=== PATIENT | female | born 1945 | race African-American/Black ===

== ENCOUNTER 2019-10-14 15:59 | Emergency (ER) | payer OTHER ==
[~2019-10-14] VITALS: Ht 160 cm; Wt 93.9 kg
[2019-10-14] MEDS ORDERED: SODIUM CHLORIDE 0.9% 500 ML IV ONE (16:32)
[2019-10-14 16:55] LABS: Basophils # (auto) 0.1 uL; Basophils % (auto) 0.9 % (0.0-2.0); Eosinophils # (auto) 0.1 uL; Eosinophils % (auto) 1.4 % (0.0-7.0); Hematocrit 45.5 % (36.0-46.0); Lymphocytes % (auto) 23.6 % (10.0-50.0); Mean Corpuscular Hemoglobin 27.3 pg (28.0-32.0); Mean Corpuscular Volume 82.7 fL (80.0-100.0); Monocytes # (auto) 0.6 uL; Monocytes % (auto) 6.5 % (0.0-12.0); Neutrophils # (auto) 5.8 uL; Neutrophils % (auto) 67.6 % (37.0-80.0); Platelet Count (auto) 355 10^3/uL (140-450); Red Cell Distribution Width 14.5 % (11.8-14.3); White Blood Cell 8.6 10^3/uL (4.4-10.8)
[2019-10-14 17:11] LABS: Albumin 3.6 g/dL (3.4-5.0); Anion Gap 7 (5-15); Blood Urea Nitrogen 25 mg/dL (7-18); Calcium 9.3 mg/dL (8.5-10.1); Carbon Dioxide 24 mmol/L (21-32); Chloride 109 mmol/L (98-107); Glucose 338 mg/dL (74-106); Magnesium 1.8 mg/dL (1.6-2.6); Potassium 4.1 mmol/L (3.5-5.1); Sodium 140 mmol/L (136-145)
[2019-10-14 17:15] LABS: Alanine Aminotransferase 19 U/L (13-56); Alkaline Phosphatase 148 U/L (45-117); Aspartate Aminotransferase 12 U/L (15-37); BUN/Creatinine Ratio 16.7; Bilirubin, Total 0.2 mg/dL (0.2-1.0); GFR African American 44 mL/min; GFR Non-African American 36 mL/min; Total Protein 8.3 g/dL (6.4-8.2)
[2019-10-14 23:57] VITALS: BP 152/84
== END 2019-10-15 01:17 | disposition short-term general hospital (02) ==
LOC: EDBD 15:59 → ER 15:59
DX: R55 Syncope and collapse (principal); R51 Headache; R42 Dizziness and giddiness; E11.65 Type 2 diabetes mellitus with hyperglycemia; J45.909 Unspecified asthma, uncomplicated; F17.210 Nicotine dependence, cigarettes, uncomplicated; E78.5 Hyperlipidemia, unspecified; I10 Essential (primary) hypertension; Z90.710 Acquired absence of both cervix and uterus; Z98.51 Tubal ligation status
CPT/HCPCS: 36415; 70450; 71045; 80053; 82962; 83735; 84484; 85025; 93005; 96360; 96361; 99285; J7040

== ENCOUNTER 2025-03-07 12:54 | Inpatient (IN) | payer OTHER ==
[~2025-03-07] VITALS: Ht 165.1 cm; Wt 81.8 kg
[2025-03-07] MEDS: SODIUM CHLORIDE 0.9% 1,000 ML IV ONE (13:00)
--- NOTE | 2025-03-07 13:03 | ED.PDOC ---
History of Present Illness HPI Comments 79-year-old female with PMHx HTN, DM brought in by EMS presents with a chief complaint of Generalized Weakness, HTN, and Diarrhea. Patient was at [facility] and was noted to have low blood pressure. Per EMS, patient is orthostatic positive. BP sitting down was 91/58 and upon standing was 69/43 and patient became lightheaded. Patient was initially A/Ox4 but EMS reports that patient seemed to have lost consciousness and is now A/Ox0, is slower to respond, and is pale and diaphoretic. 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: No Pertinent PINBALL MACHINE REPAIRER History Family History Family History: Family hx of Cancer Social History Smoker: Quit Less Than 1 Year, Cigarettes Alcohol: Denies ETOH Use Drugs: Denies Drug Use Lives In: Home Constitutional: reports: diaphoresis, weakness; denies: chills, fatigue, fever, malaise, sweats, others EENTM: denies: blurred vision, double vision, ear bleeding, ear discharge, ear drainage, ear pain, ear ringing, eye pain, eye redness, hearing loss, mouth pa in, mouth swelling, nasal discharge, nose bleeding, nose congestion, nose pain, photophobia, tearing, throat pain, throat swelling, voice changes, others Respiratory: denies: cough, hemoptysis, orthopnea, SOB at rest, shortness of breath, SOB with excertion, stridor, wheezing, others Cardiovascular: reports: others (HTN); denies: chest pain, dizzy spells, diaphoresis, Dyspnea on exertion, edema, irregular heart beat, left arm pain, lightheadedness, palpitations, PND, syncope Gastrointestinal: reports: diarrhea; denies: abdomen distended, abdominal pain, blood streaked bowels, constipated, dysphagia, difficulty swallowing, hematemesis, melena, nausea, poor appetite, poor fluid intake, rectal bleeding, rectal pain, vomiting, others Genitourinary: denies: abnormal vagina bleeding, burning, dyspareunia, dysuria, flank pain, frequency, hematuria, incontinence, pain, , vagina dis charge, urgency, others Neurological: denies: dizziness, fainting, headache, left sided numbness, left sided weakness, numbness, paresthesia, pre-existing deficit, right sided numbness, right sided weakness, seizure, speech problems, tingling, tremors, weakness, others Musculoskeletal: denies: back pain, gout, joint pain, joint swelling, muscle pain, muscle stiffness, neck pain, others Integumetry: denies: bruises, change in color, change in hair/nails, dryness, laceration, lesions, lumps, rash, wounds, others Allergic/Immunocompromised: denies: Difficulty Healing, Frequent Infections, Hives, Itching, others Hematologic/Lymphatic: denies: anemia, blood clots, easy bleeding, easy bruising, swollen glands, others Endocrine: denies: excessive hunger, excessive sweating, excessive thirst, excessive urination, flushing, intolerance to cold, intolerance to heat, unexplained weight gain, unexplained weight loss, others Psychiatric: denies: anxiety, bipolar disorder, depression, hopeless, panic disorder, schizophrenia, sleepless, suicidal, others All Other Systems: Reviewed and Negative Physical Exam General Appearance: Moderate Distress, Obese HEENT: Pale Conjuntivae (L), Pale Conjuntivae (R), Pharynx Normal, TMs Normal Neck: Full Range of Motion, Non-Tender, Normal, Normal Inspection Respiratory: Chest Non-Tender, Lungs Clear, No Accessory Muscle Use, No Respiratory Distress, Normal Breath Sounds Cardiovascular: No Edema, No JVD, No Murmur, No Gallop, Normal Peripheral Pulses, Regular Rate/Rhythm Breast Exam: Deferred Gastrointestinal: Diffuse, No Organomegaly, No Pulsatile Mass, Normal Bowel Sounds, Soft, Tenderness Genitalia: Deferred Pelvic: Deferred Rectal: Deferred Extremities: No calf tenderness, Normal capillary refill, No pedal edema Musculoskeletal : Apperance: Normal 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 Was a procedure done?: No EKG EKG : Pulse Rate (adult): 86 [place]: Normal Cardiac Rhythm: NSR Block: None ST: Nonsp Differential Dx Considerations may include: Generalized weakness, sepsis, dehydration, UTI, pneumonia X-Ray, Labs, Meds, VS Vital Signs Date Time Temp Pulse Resp B/P (MAP) Pulse Ox O2 Delivery O2 Flow Rate FiO2 03/07/25 15:36 106 03/07/25 13:35 83 03/07/25 13:15 97.8 81 21 92/66 (75) 99 97.8 03/07/25 13:15 Room Air* 0 21 03/07/25 13:00 97.7 83 18 105/55 (72) 99 97.7 Lab Test 03/07/25 14:34 03/07/25 13:33 03/07/25 13:26 Range/Units Troponin I High Sensitivity 4 4 </=34 ng/L Lactic Acid Level 3.7 *H 3.9 *H 0.4-2.0 mmol/L White Blood Count 7.2 4.4-10.8 10^3/uL Red Blood Count 5.00 4.0-5.20 10^6/uL Hemoglobin 13.5 12.2-16.2 g/dL Hematocrit 41.4 36.0-46.0 % Mean Corpuscular Volume 82.8 80.0-100.0 fL Mean Corpuscular Hemoglobin 26.9 L 28.0-32.0 pg Mean Corpuscular Hemoglobin Concent 32.5 32.0-36.0 g/dL Red Cell Distribution Width 15.9 H 11.8-14.3 % Platelet Count 255 140-450 10^3/uL Mean Platelet Volume 10.4 6.9-10.8 fL Neutrophils (%) (Auto) 57.7 37.0-80.0 % Lymphocytes (%) (Auto) 33.0 10.0-50.0 % Monocytes (%) (Auto) 6.5 0.0-12.0 % Eosinophils (%) (Auto) 2.0 0.0-7.0 % Basophils (%) (Auto) 0.8 0.0-2.0 % Neutrophils # (Auto) 4.2 1.6-8.6 10 ^3/uL Lymphocytes # (Auto) 2.4 0.4-5.4 10 ^3/uL Monocytes # (Auto) 0.5 0-1.3 10 ^3/uL Eosinophils # (Auto) 0.1 0-0.8 10 ^3/uL Basophils # (Auto) 0.1 0-0.2 10 ^3/uL Nucleated Red Blood Cells 0.1 % Sodium Level 144 136-145 mmol/L Potassium Level 3.8 3.5-5.1 mmol/L Chloride Level 111 H 98-107 mmol/L Carbon Dioxide Level 21 20-31 mmol/L Anion Gap 12 5-15 Blood Urea Nitrogen 21 9-23 mg/dL Creatinine 1.61 H 0.550-1.02 mg/dL Glomerular Filtration Rate Calc 33 >90 mL/min BUN/Creatinine Ratio 13.0 10.0-20.0 Serum Glucose 177 H 74-106 mg/dL Calcium Level 10.6 H 8.7-10.4 mg/dL Current Medications Medications (Trade) Dose Ordered Sig/Michelle Route Start Time Stop Time Status Last Admin Sodium Chloride 1,000 ml @ 150 mls/hr Q6H40M ONCE IV 03/07/25 13:00 03/07/25 19:39 03/07/25 13:00 Sodium Chloride 1,700 ml @ 1,700 mls/hr ONCE ONCE IV 03/07/25 15:00 03/07/25 15:59 DC 03/07/25 15:16 Ceftriaxone Sodium 50 ml @ 100 mls/hr ONCE ONCE IV 03/07/25 15:00 03/07/25 15:29 DC 03/07/25 15:49 IV Hep-Lock was established The patient was given normal saline per sepsis protocol. The patient is CBC is within normal limits through on the chemistry panel is within normal limits except for creatinine of 1.61 new line the glucose is 177. The patient's lactic acid levels 3.9 The repeat lactic acid level 3.7 The patient was given Rocephin 1 g IV piggyback The patient will be continually bolus of normal saline when the sepsis protocol his down the line blood cultures x2 his dime After the blood cultures, the patient was given vancomycin IV piggyback and Rocephin IV piggyback The patient is currently a [place] patient We will put a Razo catheter and we are currently waiting the urine test We did speak with [place] and they have given us authorization for admission The authorization [id number] Images Reviewed?: Images reviewed and evaluated by me Time of 1ST Reevaluation: 13:25 Reevaluation 1ST: Improved Patient Education/Counseling: Diagnosis, Treatment, Need For Follow Up Family Education/Counseling: No Family Present Sepsis Sepsis Reasesment Focused Exam Orders: Laboratory Tests 03/07/25 13:26: Lactic Acid Level 3.9 03/07/25 13:33: Lactic Acid Level 3.7 Departure 1 Departure Time of Disposition: 16:28 Impression: Primary Impression: Sepsis secondary to UTI Additional Impressions: Generalized weakness Elevated lactic acid level Disposition: ADMITTED INPATIENT Admit to: [facility] Condition: Fair Critical Care Note Critical Care Time?: Yes (45 min-critical care time only) Stability Stability form required: Yes Unstable for transfer: Telemetry monitoring (Telemetry monitoring required), Low BP (low high or fluctuating BP), ED Physician Assesment (Clinical assesment) Heart Score Heart Score: Heart Score Response (Comments) Value History N/A 0 EKG N/A 0 Age N/A 0 Risk Factors N/A 0 Troponin N/A 0 Total 0 I personally scribed for BRIGIDA MELARA MD ([email or web address]) on 03/07/25 at 13:03. Electronically submitted by Joe Coker ([email or web address]). BRIGIDA MELARA MD Mar 07, 2025 13:03
--- NOTE | 2025-03-07 13:41 | DVH ---
INDICATION: weakness TECHNIQUE: Frontal view of the chest. COMPARISON: None FINDINGS: . The heart and mediastinal contours are grossly unremarkable. There is no evidence of pleural disea se. The lungs are clear. The bony structures of the chest are intact without fracture. IMPRESSION: 1. No evidence of acute disease.
[2025-03-07 14:00] LABS: Basophils # (auto) 0.1 10 ^3/uL (0-0.2); Basophils % (auto) 0.8 % (0.0-2.0); Eosinophils # (auto) 0.1 10 ^3/uL (0-0.8); Hematocrit 41.4 % (36.0-46.0); Hemoglobin 13.5 g/dL (12.2-16.2); Lymphocytes # (auto) 2.4 10 ^3/uL (0.4-5.4); Mean Corpuscular Hemoglobin 26.9 pg (28.0-32.0); Mean Corpuscular Hgb Conc. 32.5 g/dL (32.0-36.0); Mean Corpuscular Volume 82.8 fL (80.0-100.0); Monocytes # (auto) 0.5 10 ^3/uL (0-1.3); Monocytes % (auto) 6.5 % (0.0-12.0); Neutrophils # (auto) 4.2 10 ^3/uL (1.6-8.6); Neutrophils % (auto) 57.7 % (37.0-80.0); Nucleated Red Blood Cells % 0.1 %; Platelet Count (auto) 255 10^3/uL (140-450); Red Cell Distribution Width 15.9 % (11.8-14.3); White Blood Cell 7.2 10^3/uL (4.4-10.8)
[2025-03-07 14:04] LABS: Potassium 3.8 mmol/L (3.5-5.1); Sodium 144 mmol/L (136-145)
[2025-03-07 14:05] LABS: Anion Gap 12 (5-15); Carbon Dioxide 21 mmol/L (20-31)
[2025-03-07 14:10] LABS: Blood Urea Nitrogen 21 mg/dL (9-23)
[2025-03-07 14:11] LABS: Chloride 111 mmol/L (98-107); Glucose 177 mg/dL (74-106)
[2025-03-07 14:12] LABS: Calcium 10.6 mg/dL (8.7-10.4)
[2025-03-07 14:14] LABS: Lactic Acid w/Reflex 3.9 mmol/L (0.4-2.0)
[2025-03-07] MEDS: SODIUM CHLORIDE 0.9% 1,700 ML IV ONE (15:16)
--- NOTE | 2025-03-07 15:43 | ECG ---
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
[2025-03-07] MEDS: cefTRIAXone 1GM/50ML D5W 50 ML IV ONE (15:49)
[2025-03-07] MEDS: VANCOMYCIN 1GM/200ML PM 200 ML IV ONE (16:27)
[2025-03-07 16:28] LABS: Urine Bacteria None Seen /hpf (None Seen)
[2025-03-07 16:56] LABS: Urine Blood 2+ /uL (Negative); Urine Budding Yeast MANY /hpf (None Seen); Urine Clarity Turbid (Clear); Urine Color Yellow (Yellow); Urine Hyaline Cast MOD /lpf (0 - 2); Urine Protein, UAD 1+ (Negative); Urine Specific Gravity 1.021 (1.001-1.035); Urine Squamous Epithelial Cell None Seen /hpf (<5); Urine Urobilinogen Normal (Negative); Urine WBC 491 /HPF (0-5); Urine WBC Clumps PRESENT /hpf (None Seen); Urine pH 5.5 (5.0-9.0)
[2025-03-07] MEDS ORDERED: DEXTROSE (50%) 50ML SYRG IV PRN (18:30)
[2025-03-07] MEDS ORDERED: ACETAMINOPHEN 325 MG TAB PO PRN (18:30)
[2025-03-07] MEDS: LACTATED RINGER'S 500 ML IV ONE (18:30)
[2025-03-07] MEDS ORDERED: ONDANSETRON HCL 4 MG/2 ML VIAL IV PRN (18:30)
[2025-03-07] MEDS ORDERED: DOCUSATE SOD 100 MG CAP PO PRN (18:30)
[2025-03-07] MEDS ORDERED: VANCOMYCIN PER PHARMACY 0 MG IV SCH (18:30)
[2025-03-07 19:30] VITALS: PULSE 79; RESP 12; O2SAT 98
[2025-03-07] MEDS ORDERED: MORPHINE SULFATE INJ 2 MG/ml SYRG IV PRN (19:30)
[2025-03-07] MEDS ORDERED: NITROGLYCERIN 0.4 MG SL TAB SL PRN (19:30)
--- NOTE | 2025-03-07 19:30 | DVHHP2 ---
History of Present Illness Reason for Visit: Sepsis secondary to UTI History of Present Illness The patient is a 79 years old female with past medical history of DM, GERD, hyperlipidemia, asthma, arthritis, and hypertension who presented to [facility] ED with complaint of generalized weakness associated with diarr hea and hypertension. As reported by EMS, patient was orthostatic positive. BP sitting down was 91/58, upon standing was 69/43, and patient became lightheaded. Patient was seen and evaluated in the ED, laboratory data shows WBC 7.2, platelets 255, sodium 144, potassium 3.8, BUN 21, creatinine 1.61, glucose 177, calcium 10.6, troponin four, lactic acid 3.7 trending down to 2.9, blood pressure 44/81, heart rate 86, temperature 97.8 F, O2 saturation 99% on room air. Urinalysis positive for urinary tract infection. Patient was started on IV antibiotic regimen Rocephin, please see medication orders section in the computer. On my assessment, patient denied chest pain, no headache, no dizziness, no shortness of breath, no nausea, no vomiting, no fever, no chills. Patient was admitted for further evaluation and medical management. Past Medical History Arthritis, Asthma, DM, Gout, High Lipids, HTN Past Surgical History Appendectomy, Hysterectomy, Tubal Ligation Family History Reviewed, noncontributory to the management of this case. Past Social History The patient lives at home, quit smoking cigarettes less than 1 pack per day, denies alcohol or illicit drugs abuse. Review of Systems Constitutional: Yes: Weakness, Other (Diaphoresis); No: Fever, Chills, Sweats, Malaise Eyes: No: Pain, Vision change, Conjunctivae inflammation, Eyelid inflammation, Other, Redness ENT: No: Ear pain, Ear discharge, Nose pain, Nose discharge, Nose congestion, Mouth pain, Mouth swelling, Throat pain, Throat swelling, Other Respiratory: No: Cough, Dry, Shortness of breath, SOB with excertion, Wheezing, Hemoptysis, Pleuritic Pain, Sputum, Wheezing, Other Cardiovascular: No: Chest Pain, Palpitations, Orthopnea, Paroxysmal Noc. Dyspnea, Edema, Lt Headedness, Other Gastrointestinal: Diarrhea; No: Nausea, Vomiting, Abdominal Pain, Constipation, Melena, Hematochezia, Other Genitourinary: No Dysuria, No Frequency, No Incontinence, No Hematuria, No Retention, No Other Musculoskeletal: No: other, neck pain, shoulder pain, arm pain, back pain, hand pain, leg pain, foot pain Skin: No: Rash, Lesions, Jaundice, Bruising, Other Neurological: No: Weakness, Numbness, Incoordination, Change in speech, Confusion, Seizures, Other Allergies: Coded Allergies: NO KNOWN ALLERGIES (Unverified , 07/23/11) Medications Current Medications Medications Dose Ordered Sig/Michelle Route Start Time Stop Time Status Last Admin Dose Admin Ceftriaxone Sodium 50 ml @ 100 mls/hr DAILY@09 IV 03/08/25 09:00 Vancomycin HCl 0 ml @ 0 mls/hr UD IV 03/07/25 18:30 Aspirin 81 mg DAILY PO 03/08/25 10:00 Diagnostic Test (Pha) 1 strip ACHS 03/07/25 22:00 Insulin Human Regular HS SC 03/07/25 22:00 Insulin Human Regular AC SC 03/08/25 07:00 Dextrose 50 ml UD PRN IV 03/07/25 18:30 Sodium Chloride 10 ml Q8HR IV 03/07/25 22:00 Acetaminophen/ Hydrocodone Bitart 1 tab Q4HP PRN PO 03/07/25 18:30 Ondansetron HCl 4 mg Q4HP PRN IV 03/07/25 18:30 Docusate Sodium 100 mg BIDPRN PRN PO 03/07/25 18:30 Acetaminophen 650 mg Q6HP PRN PO 03/07/25 18:30 Exam Vital Signs Vital Signs Date Time Temp Pulse Resp B/P (MAP) Pulse Ox O2 Delivery O2 Flow Rate FiO2 03/07/25 18:00 80 19 159/85 (109) 96 03/07/25 13:15 97.8 97.8 03/07/25 13:15 Room Air* 0 21 General Appearance: Alert, Oriented X3, Cooperative, No acute distress HEENT: Atraumatic, PERRLA, EOMI, Mucous membr. moist/pink Respiratory: Normal air movement Cardiovascular: Regular rate, Normal S1, Normal S2, No murmurs, Gallops Abdominal: Normal bowel sounds, Soft, No tenderness, No hepatospenomegaly, No masses Extremities: No clubbing, No cyanosis, No edema, Normal pulses, No tenderness/swelling Skin: No rashes, No breakdown, No significant lesion Neuro: Normal speech, Normal tone, Sensation intact, Cranial nerves 3-12 NL, Reflexes 2+, Other (Generalized weakness) Psych/Mental Status: Mental status NL, Mood NL Labs/Xrays Labs Test 03/07/25 16:15 03/07/25 14:34 03/07/25 13:33 03/07/25 13:26 Range/Units Urine Color Yellow Yellow Urine Clarity Turbid H Clear Urine pH 5.5 5.0-9.0 Urine Specific [place] 1.021 1.001-1.035 Urine Protein 1+ H Negative Urine Ketones Negative Negative Urine Blood 2+ H Negative /uL Urine Nitrite Negative Negative Urine Bilirubin Negative Negative Urine Urobilinogen Normal Negative mg/dL Urine Leukocyte Esterase 3+ Negative /uL Urine RBC 44 0 - 4 /hpf Urine WBC Clumps Present None Seen /hpf Urine Microscopic WBC 491 H 0-5 /HPF Urine Squamous Epithelial Cells None seen <5 /hpf Urine Bacteria None seen None Seen /hpf Urine Hyaline Casts Mod 0 - 2 /lpf Urine Yeast (Budding) Many None Seen /hpf Urine Glucose 4+ H Normal mg/dL Troponin I High Sensitivity 4 </=34 ng/L Lactic Acid Level 3.7 *H 0.4-2.0 mmol/L White Blood Count 7.2 4.4-10.8 10^3/uL Red Blood Count 5.00 4.0-5.20 10^6/uL Hemoglobin 13.5 12.2-16.2 g/dL Hematocrit 41.4 36.0-46.0 % Mean Corpuscular Volume 82.8 80.0-100.0 fL Mean Corpuscular Hemoglobin 26.9 L 28.0-32.0 pg Mean Corpuscular Hemoglobin Concent 32.5 32.0-36.0 g/dL Red Cell Distribution Width 15.9 H 11.8-14.3 % Platelet Count 255 140-450 10^3/uL Mean Platelet Volume 10.4 6.9-10.8 fL Neutrophils (%) (Auto) 57.7 37.0-80.0 % Lymphocytes (%) (Auto) 33.0 10.0-50.0 % Monocytes (%) (Auto) 6.5 0.0-12.0 % Eosinophils (%) (Auto) 2.0 0.0-7.0 % Basophils (%) (Auto) 0.8 0.0-2.0 % Neutrophils # (Auto) 4.2 1.6-8.6 10 ^3/uL Lymphocytes # (Auto) 2.4 0.4-5.4 10 ^3/uL Monocytes # (Auto) 0.5 0-1.3 10 ^3/uL Eosinophils # (Auto) 0.1 0-0.8 10 ^3/uL Basophils # (Auto) 0.1 0-0.2 10 ^3/uL Nucleated Red Blood Cells 0.1 % Sodium Level 144 136-145 mmol/L Potassium Level 3.8 3.5-5.1 mmol/L Chloride Level 111 H 98-107 mmol/L Carbon Dioxide Level 21 20-31 mmol/L Anion Gap 12 5-15 Blood Urea Nitrogen 21 9-23 mg/dL Creatinine 1.61 H 0.550-1.02 mg/dL Glomerular Filtration Rate Calc 33 >90 mL/min BUN/Creatinine Ratio 13.0 10.0-20.0 Serum Glucose 177 H 74-106 mg/dL Calcium Level 10.6 H 8.7-10.4 mg/dL PATIENT: ARABELLA DIAZ ACCT: [id number] UNIT: [id number] : 1945 LOC: ER ROOM / BED: / AGE / SEX: 79 / F ADM STATUS: REG ER SERVICE 1259 ORDERING PHYSICIAN: BRIGIDA MELARA MD PROCEDURE(s): CXRP - CHEST PORTABLE REASON: weakness ORDER NUMBER(s): [id number], ACCESSION NUMBER(s): [id number] INDICATION: weakness TECHNIQUE: Frontal view of the chest. COMPARISON: None FINDINGS: The heart and mediastinal contours are grossly unremarkable. There is no e vidence of pleural disease. The lungs are clear. The bony structures of the chest are intact without fracture. IMPRESSION: 1. No evidence of acute disease. Assessment/Plan Assessment/Plan Sepsis secondary to UTI Acute renal injury Diabetes mellitus with hyperglycemia Elevated lactic acid level Generalized weakness Plan 1. Admit to telemetry unit 2. Breathing treatment 3. Pain control management 4. IV antibiotic management 5. Management of fluids and electrolytes 6. Consultation for hospitalist 7. Diagnostic test chest x-ray 8. DVT prophylaxis on SCDs 9. Repeat labs CBC, CMP in a.m. 10. Home medication reviewed and reconciled 11. Continue with current medical management 12. Treatment plan discussed with patient and RN. Patient verbalized understanding. Plan discussed with: Patient, Other (RN) My Orders Orders - BRENNEN MAHAJAN DNP Procedure Category Date Status Time Urine Bacterial KURT 03/07/25 In Process Culture 18:18 Consistent DIET 03/07/25 Transmitted Carb(Ccho)Diabetes Dinner Ceftriaxone 1gm/50ml PHA 03/08/25 In Process D5w (Rocephin) 09:00 Vancomycin Per PHA 03/07/25 In Process Pharmacy 18:30 Aspirin Tablet PHA 03/08/25 In Process 10:00 Glucose Blood PHA 03/07/25 In Process (Accu-Chek Comfort 22:00 Insulin R (Human) PHA 03/07/25 In Process (Insulin R) 22:00 Insulin R (Human) PHA 03/08/25 In Process (Insulin R) 07:00 Dextrose 50% Syringe PHA 03/07/25 In Process 18:30 Allergies PARVIZ 03/07/25 In Process 18:18 Code Status CODE 03/07/25 Transmitted 18:18 Sodium Chloride Lock PHA 03/07/25 In Process (Saline Lock Ns) 22:00 Oxygen Per Hour RT 03/07/25 Transmitted 18:18 Hydrocodone-Acet PHA 03/07/25 In Process 5/325mg Tab (Sharon 18:30 Ondansetron Hcl PHA 03/07/25 In Process (Zofran) 18:30 Docusate Sodium PHA 03/07/25 In Process Capsule (Colace 18:30 Fall Risk Precautions PARVIZ 03/07/[address] 18:18 Complete Blood Count LAB 03/08/25 Verified 04:00 Comprehensive LAB 03/08/25 Verified Metabolic Panel 04:00 Condition: Serious PARVIZ 03/07/25 In Process 18:18 Acetaminophen Tablet PHA 03/07/25 In Process (Tylenol Tablet) 18:30 Bedrest With Bathroom PARVIZ 03/07/25 In Process Privileg 18:18 Sequential PARVIZ 03/07/25 In Process Compression Device Lactic Acid W/ Reflex LAB 03/07/25 Logged Order 20:00 Vancomycin,Random LAB 03/08/25 Verified 04:00 Admit ADMIT 03/07/25 Verified 19:29 Nitroglycerin PHA 03/07/25 Verified Sublingual (Ntrostat 19:30 Morphine Sulfate PHA 03/07/25 Verified Injection 19:30 Stat Ekg For Chest [facility] 03/07/25 Verified Pain 19:29 Notify Md Of Changes [facility] 03/07/25 Verified From Base 19:29 Maintenance Supervisor For [facility] 03/07/25 Verified 24 Hours 19:29 Emergency Dysrhythmia [facility] 03/07/25 Verified Protocol 19:29 Rhythm Strips Once [facility] 03/07/25 Verified Every Shift 19:29 Oxygen By Nasal RT 03/07/25 Verified Cannula 19:29 Problem List: (1) Sepsis secondary to UTI (2) Acute renal injury (3) Diabetes mellitus with hyperglycemia (4) Elevated lactic acid level (5) Generalized weakness Date of Service: Mar 07, 2025 Billing Provider: BRENNEN MAHAJAN DNP Common Visit Codes: [id number] INP/OBS CARE (HIGH) BRENNEN MAHAJAN DNP Mar 07, 2025 19:30
[2025-03-07 21:36] LABS: Lactic Acid w/Reflex 2.9 mmol/L (0.4-2.0)
[2025-03-07] MEDS: ACCU-CHEK COMFORT CURVE STRIP VI SCH (22:00)
[2025-03-07] MEDS: InsuLIN REG 1unit/0.01ml Soln (100units/ml) SC SCH (22:00)
[2025-03-07] MEDS: SODIUM CHLOR 0.9% PF (SALINE LOCK) 10ML VIAL/SYR IV SCH (22:00)
[2025-03-07] MEDS: hydrALAZINE HCL 20 MG/ML VL IV PRN (23:17)
[2025-03-08] MEDS ORDERED: INSR100KIT IV (00:38)
[2025-03-08 06:11] LABS: Basophils # (auto) 0.1 10 ^3/uL (0-0.2); Basophils % (auto) 0.5 % (0.0-2.0); Eosinophils # (auto) 0.2 10 ^3/uL (0-0.8); Eosinophils % (auto) 2.3 % (0.0-7.0); Hematocrit 38.7 % (36.0-46.0); Hemoglobin 12.4 g/dL (12.2-16.2); Lymphocytes # (auto) 2.5 10 ^3/uL (0.4-5.4); Lymphocytes % (auto) 23.9 % (10.0-50.0); Mean Corpuscular Volume 84.4 fL (80.0-100.0); Monocytes # (auto) 0.9 10 ^3/uL (0-1.3); Monocytes % (auto) 8.2 % (0.0-12.0); Neutrophils # (auto) 6.8 10 ^3/uL (1.6-8.6); Neutrophils % (auto) 65.1 % (37.0-80.0); Nucleated Red Blood Cells % 0.1 %; Platelet Count (auto) 211 10^3/uL (140-450); Red Blood Cells 4.59 10^6/uL (4.0-5.20); White Blood Cell 10.4 10^3/uL (4.4-10.8)
[2025-03-08] MEDS: InsuLIN REG 1unit/0.01ml Soln (100units/ml) SC SCH (06:58)
[2025-03-08 07:09] LABS: Alanine Aminotransferase 13 U/L (7-40); Albumin 3.9 g/dL (3.2-4.8); Alkaline Phosphatase 106 U/L (46-116); Anion Gap 13 (5-15); BUN/Creatinine Ratio 12.4 (10.0-20.0); Blood Urea Nitrogen 17 mg/dL (9-23); Calcium 9.3 mg/dL (8.7-10.4); Potassium 3.7 mmol/L (3.5-5.1); Sodium 140 mmol/L (136-145); Total Protein 6.5 g/dL (5.7-8.2)
[2025-03-08 07:15] LABS: Aspartate Aminotransferase 13 U/L (13-40); Bilirubin, Total 0.3 mg/dL (0.2-1.0); Carbon Dioxide 16 mmol/L (20-31); Chloride 111 mmol/L (98-107); Glucose 214 mg/dL (74-106)
[2025-03-08 08:00] VITALS: PULSE 96; O2SAT 99
[2025-03-08 08:24] VITALS: BP 143/84; PULSE 98; RESP 20; TEMP 97.7; O2SAT 99
[2025-03-08] MEDS: ASPirin 81 mg TAB PO SCH (09:32)
[2025-03-08] MEDS: cefTRIAXone 1GM/50ML D5W 50 ML IV SCH (09:34)
[2025-03-08] MEDS: amLODIPine BESYLATE 5 MG TAB PO SCH (09:35)
--- NOTE | 2025-03-08 12:05 | DVHPN2 ---
Progress Note Date Seen: Mar 08, 2025 Medical Necessity Reason Pt with a Central, PICC or Fol: No Subjective Patient reports: No new complaints Review of Systems: HEENT:Normal, CVS:Normal, RESPIRATORY:Normal, GI:Normal, :Normal, MSK:Normal, NEURO:Normal Objective vital signs Vital Sign Date Time Temp Pulse Resp B/P (MAP) Pulse Ox O2 Delivery O2 Flow Rate FiO2 03/08/25 09:35 143/84 03/08/25 08:24 97.7 98 20 99 97.7 03/07/25 22:45 Room Air* 0 21 Total Intake and Output 03/07/25 03/07/25 03/08/25 15:00 23:00 07:00 Intake Total 300 ml 2400 ml Output Total 700 ml Balance 300 ml 2400 ml -700 ml medications Current Medications Medications Dose Ordered Sig/Michelle Route Start Time Stop Time Status Last Admin Dose Admin Ceftriaxone Sodium 50 ml @ 100 mls/hr DAILY@09 IV 03/08/25 09:00 03/08/25 09:34 100 MLS/HR Vancomycin HCl 0 ml @ 0 mls/hr UD IV 03/07/25 18:30 Aspirin 81 mg DAILY PO 03/08/25 10:00 03/08/25 09:32 81 MG Diagnostic Test (Pha) 1 strip ACHS 03/07/25 22:00 03/08/25 06:56 1 STRIP Insulin Human Regular HS SC 03/07/25 22:00 Insulin Human Regular AC SC 03/08/25 07:00 03/08/25 06:58 9 UNITS Dextrose 50 ml UD PRN IV 03/07/25 18:30 Sodium Chloride 10 ml Q8HR IV 03/07/25 22:00 03/08/25 06:00 10 ML Acetaminophen/ Hydrocodone Bitart 1 tab Q4HP PRN PO 03/07/25 18:30 Ondansetron HCl 4 mg Q4HP PRN IV 03/07/25 18:30 Docusate Sodium 100 mg BIDPRN PRN PO 03/07/25 18:30 Acetaminophen 650 mg Q6HP PRN PO 03/07/25 18:30 Nitroglycerin 0.4 mg Q5MINP PRN SL 03/07/25 19:30 Morphine Sulfate 2 mg Q30M PRN IV 03/07/25 19:30 Hydralazine HCl 10 mg Q6HP PRN IV 03/07/25 22:30 03/07/25 23:17 10 MG Amlodipine Besylate 5 mg DAILY PO 03/08/25 10:00 03/08/25 09:35 5 MG Atorvastatin Calcium 10 mg HS PO 03/08/25 22:00 Examination: GENERAL:Normal, HEENT:Normal, NECK:Normal, LUNGS:Normal, CVS:Normal, ABDOMEN:Normal, MSK:Normal, SKIN:Normal, NEURO:Normal, :Normal laboratory and microbiology Laboratory Tests 03/08/25 04:50 Test 03/08/25 04:50 Range/Units Serum Glucose 214 H 74-106 mg/dL Microbiology Date/Time Source Procedure Growth Status 03/07/25 16:15 Voided Urine Urine Culture - Preliminary Resulted Problem List/Assessment/Plan Problem List/Assessment/Plan #1 likely sepsis with uti: iv antibiotics #2 acute renal failure ?vasomotor nephropathy: ivf #3 obesity #4 dm: ssi #5 diarrhea: improved #6 hypotension ?hypovolemia advance care planning- full code- time spent 19 mins Plan discussed with: Patient, Son Date of Service: Mar 08, 2025 Billing Provider: POP MCMAHON MD Common Visit Codes: [id number] INP/OBS CARE(HIGH) Secondary Visit Codes: [id number] CARE PLAN 30 MINUTES POP MCMAHON MD Mar 08, 2025 12:05
[2025-03-08 12:48] VITALS: BP 144/89; PULSE 95; RESP 20; TEMP 97.6; O2SAT 98
[2025-03-08] MEDS: VANCOMYCIN 1GM/200ML PM 200 ML IV ONE (15:00)
[2025-03-08] MEDS: LACTATED RINGER'S 1,000 ML IV SCH (15:00)
[2025-03-08 17:00] VITALS: BP 132/76; PULSE 87; RESP 18; TEMP 98.3; O2SAT 99
--- NOTE | 2025-03-08 19:01 | ECG ---
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
[2025-03-08 20:00] VITALS: PULSE 90; PULSE 92; RESP 18; O2SAT 99
[2025-03-08] MEDS: HYDROcodone-ACET 5/325MG TAB PO PRN (20:27)
[2025-03-08 21:00] VITALS: BP 132/83; PULSE 90; RESP 18; TEMP 98.5; O2SAT 99
[2025-03-08] MEDS: ATORVASTATIN 20 MG TAB PO SCH (21:15)
[2025-03-09] VITALS (7 sets, daily range): BP systolic 119–150; BP diastolic 65–84; PULSE 80–94; RESP 14–18; TEMP 97.2–97.8; O2SAT 67–100
[2025-03-09 06:37] LABS: Anion Gap 11 (5-15); Carbon Dioxide 23 mmol/L (20-31); Chloride 106 mmol/L (98-107); Sodium 140 mmol/L (136-145)
[2025-03-09 06:38] LABS: Calcium 9.1 mg/dL (8.7-10.4)
[2025-03-09 06:41] LABS: Basophils # (auto) 0.1 10 ^3/uL (0-0.2); Basophils % (auto) 0.8 % (0.0-2.0); Eosinophils # (auto) 0.3 10 ^3/uL (0-0.8); Hemoglobin 11.5 g/dL (12.2-16.2)
[2025-03-09 06:43] LABS: BUN/Creatinine Ratio 18.2 (10.0-20.0)
[2025-03-09 06:44] LABS: Blood Urea Nitrogen 24 mg/dL (9-23); Glucose 287 mg/dL (74-106); Hematocrit 34.9 % (36.0-46.0); Lymphocytes % (auto) 28.6 % (10.0-50.0); Mean Corpuscular Hemoglobin 26.8 pg (28.0-32.0); Mean Corpuscular Volume 81.1 fL (80.0-100.0); Monocytes # (auto) 0.6 10 ^3/uL (0-1.3); Monocytes % (auto) 8.4 % (0.0-12.0); Neutrophils # (auto) 4.2 10 ^3/uL (1.6-8.6); Neutrophils % (auto) 58.2 % (37.0-80.0); Platelet Count (auto) 251 10^3/uL (140-450); White Blood Cell 7.1 10^3/uL (4.4-10.8)
--- NOTE | 2025-03-09 10:59 | MEDREC ---
[facility] Intervention Section I [facility] Intervention: Review courses of therapy (PRELIMINARY URINE CULTURE POSITIVE FOR YEAST (>100,000 CFU/ML) - PLEASE CONSIDER ADDING ANTIFUNGAL AGENT ) SINCERE OCASIO PHARMACIST Mar 09, 2025 10:59
--- NOTE | 2025-03-09 11:26 | DVHDS2 ---
Discharge Summary Date of Admission Mar 07, 2025 at 19:29 Date of Discharge: Mar 09, 2025 Labs/Diagnostic Data: Laboratory Results Test 03/09/25 06:03 03/09/25 05:47 03/08/25 04:50 03/07/25 20:36 POC Glucose 284 mg/dl (70-106) White Blood Count 7.1 10^3/uL (4.4-10.8) Red Blood Count 4.30 10^6/uL (4.0-5.20) Hemoglobin 11.5 g/dL (12.2-16.2) Hematocrit 34.9 % (36.0-46.0) Mean Corpuscular Volume 81.1 fL (80.0-100.0) Mean Corpuscular Hemoglobin 26.8 pg (28.0-32.0) Mean Corpuscular Hemoglobin Concent 33.0 g/dL (32.0-36.0) Red Cell Distribution Width 16.0 % (11.8-14.3) Platelet Count 251 10^3/uL (140-450) Mean Platelet Volume 10.6 fL (6.9-10.8) Neutrophils (%) (Auto) 58.2 % (37.0-80.0) Lymphocytes (%) (Auto) 28.6 % (10.0-50.0) Monocytes (%) (Auto) 8.4 % (0.0-12.0) Eosinophils (%) (Auto) 4.0 % (0.0-7.0) Basophils (%) (Auto) 0.8 % (0.0-2.0) Neutrophils # (Auto) 4.2 10 ^3/uL (1.6-8.6) Lymphocytes # (Auto) 2.0 10 ^3/uL (0.4-5.4) Monocytes # (Auto) 0.6 10 ^3/uL (0-1.3) Eosinophils # (Auto) 0.3 10 ^3/uL (0-0.8) Basophils # (Auto) 0.1 10 ^3/uL (0-0.2) Nucleated Red Blood Cells 0.0 % Sodium Level 140 mmol/L (136-145) Potassium Level 4.0 mmol/L (3.5-5.1) Chloride Level 106 mmol/L (98-107) Carbon Dioxide Level 23 mmol/L (20-31) Anion Gap 11 (5-15) Blood Urea Nitrogen 24 mg/dL (9-23) Creatinine 1.32 mg/dL (0.550-1.02) Glomerular Filtration Rate Calc 41 mL/min (>90) BUN/Creatinine Ratio 18.2 (10.0-20.0) Serum Glucose 287 mg/dL (74-106) Calcium Level 9.1 mg/dL (8.7-10.4) Random Vancomycin Level 9.8 ug/mL (5-10) Total Bilirubin 0.3 mg/dL (0.2-1.0) Aspartate Amino Transferase (AST) 13 U/L (13-40) Alanine Aminotransferase (ALT) 13 U/L (7-40) Alkaline Phosphatase 106 U/L (46-116) Total Protein 6.5 g/dL (5.7-8.2) Albumin 3.9 g/dL (3.2-4.8) Lactic Acid Level 2.9 mmol/L (0.4-2.0) Test 03/07/25 16:15 03/07/25 14:34 Urine Color Yellow (Yellow) Urine Clarity Turbid (Clear) Urine pH 5.5 (5.0-9.0) Urine Specific [place] 1.021 (1.001-1.035) Urine Protein 1+ (Negative) Urine Ketones Negative (Negative) Urine Blood 2+ /uL (Negative) Urine Nitrite Negative (Negative) Urine Bilirubin Negative (Negative) Urine Urobilinogen Normal mg/dL (Negative) Urine Leukocyte Esterase 3+ /uL (Negative) Urine RBC 44 /hpf (0 - 4) Urine WBC Clumps Present /hpf (None Seen) Urine Microscopic WBC 491 /HPF (0-5) Urine Squamous Epithelial Cells None seen /hpf (<5) Urine Bacteria None seen /hpf (None Seen) Urine Hyaline Casts Mod /lpf (0 - 2) Urine Yeast (Budding) Many /hpf (None Seen) Urine Glucose 4+ mg/dL (Normal) Troponin I High Sensitivity 4 ng/L (</=34) Other Laboratory Tests 03/09/25 05:47 Brief Hx & Hospital Course: see dictated note Condition at Discharge: Fair Final Diagnosis/Problems List uti dizziness Discharge Disposition: Acute Care Facility Discharge Instruct/Medications Diet: Cardiac 2g Na,low cholest Activity: No Restrictions, As Tolerated Follow Up/Referral: fu with sophia Medications: per dec Discharge Statement: "Patient was advised to return to the ER or call 911 if any headaches, dizziness, shortness of breath, chest pain, abdominal pain, bleeding, fevers, or worsening of medical condition. Patient was counseled about treatment plan, medications, possible side effects, patientverbalized understanding. All questions were answered to the best of my ability. This discharge took greater then 30 minutes in planning, reviewing documentation, counseling the patient, and discussing with other team members." ASSESSMENT ASSESSMENT Assessment uti dizziness Date of Service: Mar 09, 2025 Billing Provider: POP MCMAHON MD Common Visit Codes: 61399-ZGH/OBS DISCH DAY >30min Secondary Visit Codes: 38447-[id number] CARE PLAN 30 MINUTES POP MCMAHON MD Mar 09, 2025 11:26
[2025-03-09] MEDS ORDERED: MECLIZINE HCL 25 MG TAB PO PRN (11:30)
[2025-03-09] MEDS: FLUCONAZOLE 200MG/100ML 100 ML IV ONE (12:28)
--- NOTE | 2025-03-09 13:30 | DVHDS ---
DATE OF DISCHARGE: 03/09/2025 TRANSFER SUMMARY HISTORY OF PRESENT ILLNESS: The patient is a 79-year-old lady who is admitted with a history of diarrhea, hypertension, generalized weakness, and dizziness. The patient has a history of diabetes, arthritis, hypertension, GERD, and hyperlipidemia as well as asthma. HOSPITAL COURSE: The patient was noted to have elevated creatinine of 1.6. Lactate was also elevated at 3.7. The patient was placed on broad spectrum antibiotics. She had evidence of urinary tract infection. Blood cultures have so far been negative and urine cultures have grown yeast. Chest x-ray showed no acute disease. The patient will now be transferred to [facility] for further management. FINAL DIAGNOSES: * Likely sepsis with UTI secondary to yeast. * Acute renal failure, questionable vasomotor nephropathy. * Obesity. * Diabetes mellitus. * Hypotension, likely secondary to hypovolemia. * History of diarrhea. * Dizziness. Time spent in discharge planning and review of plan with the patient and nursing and paper work was 39 minutes. MD AFUA Casarez/CARA/JENNIFER TID: [id number] RECEIPT: [id number]
[2025-03-09] MEDS ORDERED: VANCOMYCIN 1GM/200ML PM 200 ML IV ONE (15:00)
[2025-03-10] MEDS ORDERED: FLUCONAZOLE 200MG/100ML 100 ML IV SCH (10:00)
== END 2025-03-09 20:56 | disposition short-term general hospital (02) | DRG 871 ==
LOC: EDBD 12:54 → ER 12:54 → OVERFLOW 19:29 → TELE-EAST 22:13 → EAST 03-09 11:24
PROVIDERS: ADMIT Internal Medicine; ATTEND Internal Medicine
DX: A41.89 Other specified sepsis (principal); N17.0 Acute kidney failure with tubular necrosis; E87.20 Acidosis, unspecified; N39.0 Urinary tract infection, site not specified; E11.65 Type 2 diabetes mellitus with hyperglycemia; E86.1 Hypovolemia; K21.9 Gastro-esophageal reflux disease without esophagitis; M10.9 Gout, unspecified; E66.9 Obesity, unspecified; I10 Essential (primary) hypertension; E78.5 Hyperlipidemia, unspecified; J45.909 Unspecified asthma, uncomplicated; Z87.891 Personal history of nicotine dependence; Z90.710 Acquired absence of both cervix and uterus; Z90.49 Acquired absence of other specified parts of digestive tract; Z98.51 Tubal ligation status; Z68.30 Body mass index [BMI] 30.0-30.9, adult
CPT/HCPCS: 36415; 71045; 80048; 80053; 80202; 81001; 82962; 83605; 84484; 85025; 87040; 87081; 87086; 87088; 93005; 96361; 96365; 97163; 99291; G0378; J1450; J1815